=== PATIENT | male | born 1980 | race Caucasian/White ===

== ENCOUNTER 2017-10-16 13:01 | Emergency (ER) | payer BC ==
[~2017-10-16] VITALS: Ht 188 cm; Wt 84.7 kg
[~2017-10-16 13:01] MED LIST: ACIPHEX20 MG; NEXIUM40 MG PO; TERBINAFINE HC250 MG PO; TYLENOL 8 HOUR650 MG
[2017-10-16 13:50] LABS: HEMATOCRIT 42.7 % (38.0-50.0); MCH 30.3 PG (29.0-34.0); MCV 89.1 FL (86-99); MEAN PLAT.VOLUME 9.8 uM^3 (9.0-12.4); PLATELET COUNT 246 K/uL (156-360); RBC DIS.WIDTH-SD 39.7 % (39-53); RED BLOOD COUNT 4.79 M/uL (4.00-5.50); WHITE BLOOD COUNT 8.5 K/uL (4.1-10.2)
[2017-10-16 13:58] LABS: CHLORIDE 103 mEq/L (99-109); POTASSIUM 5.4 mEq/L (3.7-5.4); SODIUM 141 mEq/L (136-147)
[2017-10-16 14:00] LABS: GLUCOSE 107 mg/dL (70-99)
[2017-10-16 14:01] LABS: ANION GAP 10 MEQ/L (2-14)
[2017-10-16 14:04] LABS: GFR ESTIMATE (CALCULATED) > 59 mL/min/
[2017-10-16 14:05] LABS: UREA NITROGEN (BUN) 8 mg/dL (9-23)
[2017-10-16] MEDS ORDERED: FLONASE16 G1 BOTH NARES (15:42)
[2017-10-16] MEDS ORDERED: LEVAQUIN500 MG PO (15:42)
[2017-10-16] MEDS ORDERED: MUCINEX D ER T1 EACH PO (15:42)
[2017-10-16] MEDS ORDERED: TESSALON PERLE100 MG PO (15:42)
[2017-10-16] MEDS ORDERED: VENTOLIN HFA18 GM IH (15:42)
[2017-10-16] MEDS ORDERED: PREDNISONE20 MG PO (15:44)
[2017-10-16 15:56] VITALS: BP 118/70
== END 2017-10-16 15:58 | disposition home or self-care (01) ==
LOC: EME 13:01
DX: J32.9 Chronic sinusitis, unspecified (principal); H65.03 Acute serous otitis media, bilateral; J18.0 Bronchopneumonia, unspecified organism; Z88.0 Allergy status to penicillin; Z72.0 Tobacco use
CPT/HCPCS: 71020; 80048; 85027; 94640; 94664; 99281; 99284; J7512